=== PATIENT | male | born 1940 | race Two or more races ===

== ENCOUNTER 2016-08-14 15:38 | Emergency (ER) | payer MEDICARE, OTHER ==
--- NOTE | ~2016-08-14 | EKG ---
PATIENT: DENISE ARREOLA UNIT #: [id number] Ventricular Rate: 51 BPM Atrial Rate: 51 BPM P-R Interval: 144 ms QRS Duration: 96 ms Q-T Interval: 448 ms QTC Calculation(Bezet): 412 ms P Collins: 1 degrees Calculated R Collins: -8 degrees Calculated T Collins: -16 degrees Diagnosis Line: Sinus bradycardia Diagnosis Line: Nonspecific T wave abnormality Diagnosis Line: Abnormal ECG Diagnosis Line: When compared with ECG of 30-JUL-2014 17:08, Diagnosis Line: T wave inversion now evident in Inferior leads Diagnosis Line: Confirmed by STANFORD PEREZ MD ([id number]) on Diagnosis Line: 08/15/2016 6:50:52 AM INTERPRETING MAXX GARCIA
[2016-08-14 16:48] LABS: POC - CKMB <1.0 ng/mL (0.0-7.9); POC - TROPONIN <0.05 ng/mL (<=0.05)
[2016-08-14 16:55] LABS: BASOPHIL% 0.3 % (0-2.5); EOSINOPHIL% 0.3 % (0.0-7.0); HEMATOCRIT 47.2 % (38.0-50.0); HEMOGLOBIN 15.8 gm/dL (13.0-16.0); LYMPHOCYTE# 0.9 X10e3 (1.0-3.5); LYMPHOCYTE% 12.7 % (17.0-45.0); MEAN CELL VOLUME 89.1 FL (83-96); MEAN CORPUSCULAR HEMOGLOBIN 29.9 PG (28-34); MEAN CORPUSCULAR HGB CONC 33.6 g/dL (30-36); MEAN PLATELET VOLUME 9.3 FL (6.5-11.5); MONOCYTE# 0.4 X10e3 (0-1.0); MONOCYTE% 5.5 % (3.0-12.0); NEUTROPHIL# 5.9 X10e3 (1.5-7.1); NEUTROPHIL% 81.2 % (40-75); PLATELET COUNT 187 X10e3 (140-420); RED BLOOD COUNT 5.29 X10e (3.90-5.60); RED CELL DISTRIBUTION WIDTH 12.8 % (11.0-15.5); WHITE BLOOD COUNT 7.3 X10e3 (4.0-10.5)
[2016-08-14 17:02] LABS: DIFF IND NO
[2016-08-14 17:15] LABS: ALBUMIN SERUM 4.4 g/dL (3.5-5.0); BILIRUBIN, DIRECT 0.1 mg/dL (0.0-0.2); BILIRUBIN,INDIRECT 0.7 mg/dL (0.0-0.9); BILIRUBIN,TOTAL 0.8 mg/dL (0.2-2.0); CALCIUM SERUM 9.5 mg/dL (8.4-10.2); CREATININE SERUM 0.7 mg/dL (0.6-1.4); GLOM FILT RATE Estimated 91.1 mL/min (>60); POTASSIUM 4.4 mmol/L (3.5-5.1)
== END 2016-08-14 18:00 | disposition home or self-care (01) ==
LOC: CED 15:38
PROVIDERS: Emergency Medicine
DX: H81.12 Benign paroxysmal vertigo, left ear (principal); E11.9 Type 2 diabetes mellitus without complications; I10 Essential (primary) hypertension
CPT/HCPCS: 36415; 80048; 80076; 82553; 82947; 84484; 85025; 93005; 96361; 96374; 99284; J2765